=== PATIENT | male | born 1965 | race Caucasian/White ===

== ENCOUNTER 2018-06-07 08:12 | Outpatient (CLI) | payer OTHER ==
--- NOTE | 2018-06-07 11:31 | CT ---
CT ABDOMEN AND PELVIS WITH AND WITHOUT CONTRAST: Date: 06/07/18 HISTORY: Gross hematuria. COMPARISON: None. FINDINGS: On the noncontrast portion of the examination, there is a nonobstructive 2.0 x 2.0 mm calculus inferi or left renal collecting system. No other renal calculus. There is no hydroureteronephrosis. No abnormal calcifications within the urinary bladder. On the postcontrast portion of the examination, no abnormal renal enhancing mass. Multiple too small to characterize hypodensities throughout both cortices. No abnormal focal area of urothelial enhancement. Dense calcifications of the prostate. On the delayed postcontrast sequence, there are no filling defects within the renal pelvises, calices , nor ureters. No abnormal filling defect within the urinary bladder. Skeleton is unremarkable. Low grade degenerative changes lower lumbar spine. Mild diverticular diseas e of the sigmoid colon without active current inflammation. The appendix is visualized and is normal. No retroperitoneal adenopathy. The liver, gallbladder, spleen, and pancrease are unremarkable. No dilated loops of large or small bowel. IMPRESSION: 1. Nonobstructed 2.0 x 2.0 mm calculus inferior left renal collecting system. No other calculi are p resent. No hydroureteronephrosis. 2. Mild diverticular disease sigmoid colon without active current inflammation. 3. No abnormal renal enhancing mass. No urothelial mass. POS: DARY
[2018-06-07] MEDS ORDERED: ISOVUE-370 76%-LOCM 1 ML ONE (11:48)
== END 2018-06-07 08:13 | disposition home or self-care (01) ==
LOC: BICCT 08:12
PROVIDERS: ATTEND Urology
DX: R31.9 Hematuria, unspecified (principal); N20.0 Calculus of kidney; K57.30 Diverticulosis of large intestine without perforation or abscess without bleeding
CPT/HCPCS: 74178

== ENCOUNTER 2019-01-21 08:04 | Outpatient (CLI) | payer OTHER ==
--- NOTE | 2019-01-21 08:30 | ULT ---
US Gallbladder RUQ HISTORY: Right upper quadrant pain COMPARISON: None. FINDINGS: Real-time imaging of the right upper quadrant shows multiple echogenic foci with shadowing within the gallbladder lumen compatible with gallstones. The common duct is 6 mm. The liver shows no focal abnormalities, it measures 16 cm in length. Right kidney is normal in size and not obstructed. The pancreas is largely obscured. IMPRESSION: Multiple cholelithiasis with a normal caliber common duct.
== END 2019-01-21 08:05 | disposition home or self-care (01) ==
LOC: BICULT 08:04
PROVIDERS: ATTEND Family Medicine
DX: R10.11 Right upper quadrant pain (principal); K80.20 Calculus of gallbladder without cholecystitis without obstruction
CPT/HCPCS: 76705